=== PATIENT | female | born 1960 | race Caucasian/White ===

== ENCOUNTER 2019-12-26 06:36 | Emergency (ER) | payer OTHER ==
[~2019-12-26] VITALS: Ht 162.6 cm; Wt 97.5 kg
[~2019-12-26 06:36] MED LIST: FLUCONAZOLE150 MG PO
[2019-12-26] MEDS ORDERED: LANTUS SOL100 UNIT/1 (07:20)
[2019-12-26] MEDS ORDERED: JARDIANCE25 MG (07:20)
[2019-12-26] MEDS ORDERED: ATORVASTATIN CA20 MG (07:21)
[2019-12-26] MEDS ORDERED: TOPROL XL25 M1 (07:21)
== END 2019-12-26 09:40 | disposition home or self-care (01) ==
LOC: ER 06:36
DX: S00.83XA Contusion of other part of head, initial encounter (principal); W18.09XA Striking against other object with subsequent fall, initial encounter; Y93.89 Activity, other specified; Y92.098 Other place in other non-institutional residence as the place of occurrence of the external cause; Y99.8 Other external cause status